=== PATIENT | male | born 1995 | race Caucasian/White ===

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

== ENCOUNTER → 2017-01-18 | Outpatient (CLI) | payer OTHER ==
[~2017-01-18] MED LIST changes: -ACYC-57 PO; +ACYC1CAP8 PO; +IBUP-103 PO; +OPTIRAY 320 IV PRN; +OXYC-57 PO
--- NOTE | 2017-01-18 16:59 | DIAGNOSTIC IMAGING REPORT ---
CT ABD/PELVIS IV AND ORAL CONT CLINICAL HISTORY: R10.31 Abdominal pain, bilateral lower quadrant COMPARISON STUDY: None TECHNIQUE: Following the IV administration of 120 mL of Optiray-320, CT scan of the abdomen and pelvis was performed from the lung bases to the proximal femurs. Images are reviewed in the axial, sagittal, and coronal planes. IV contrast was administered without complication. A dose lowering technique was utilized adhering to the principles of ALARA. CT DOSE: 299.92 mGy.cm FINDINGS: Lower chest: The heart is normal in size and configuration, without pericardial effusion. The lung bases and pleural spaces are clear. Liver: The contrast-enhanced liver is normal in size, contour, and attenuation. There is no intrahepatic biliary ductal dilatation. The hepatic veins and portal veins are patent. Gallbladder: Unremarkable. Spleen: The spleen is mildly enlarged measuring 13.8 cm Pancreas: Unremarkable. Adrenal glands: Unremarkable. Kidneys: There is symmetric renal cortical enhancement. The kidneys are normal in size without hydronephrosis. Bowel: There are no transition zones indicate bowel obstruction. There is no evidence of acute diverticulitis. There is a moderate amount of stool within the rectosigmoid. There is radiopaque material near the cecal tip consistent with a prior appendectomy. The terminal ileum is at the upper limits of normal in thickness. Peritoneum: There is no intraperitoneal free air or abdominal ascites. Vasculature: The abdominal aorta is normal in course and caliber. Adenopathy: None. Pelvic viscera: The bladder, and pelvic viscera are unremarkable. Skeletal structures: No destructive osseous lesions are seen. IMPRESSION: 1. Mild splenomegaly 2. No evidence of bowel obstruction. No evidence of free air 3. No acute inflammatory changes. No evidence of diverticulitis. Electronically signed by: Tyree Cordova M.D. 01/18/2017 4:57 PM Dictated Date/Time: 01/18/2017 4:52 PM
== END | disposition home or self-care (01) ==
LOC: C.CTS 16:22
PROVIDERS: ATTEND Internal Medicine
DX: R10.31 Right lower quadrant pain (principal); R10.32 Left lower quadrant pain